=== PATIENT | female | born 1940 | race Caucasian/White ===

== ENCOUNTER 2016-09-11 12:55 | Day surgery (SDC) | payer MEDICARE, BC ==
[2016-09-11 13:31] VITALS: TEMP 97.7
[2016-09-11] MEDS ORDERED: TRIAMCINOLONE ACETONIDE 40 MG/ML SUS ONE (14:05)
[2016-09-11] MEDS ORDERED: LIDOCAINE HCL 1% MPF SOL ONE (14:18)
[2016-09-11 15:19] VITALS: PULSE 64; RESP 18; O2SAT 96
[2016-09-11 15:20] VITALS: BP 159/85
== END 2016-09-11 15:15 | disposition home or self-care (01) | DRG 552 ==
LOC: SURG 12:55
PROVIDERS: ATTEND Nurse Anesthetist, Certified Registered
DX: M48.06 Spinal stenosis, lumbar region (principal)
CPT/HCPCS: J3300

== ENCOUNTER 2016-10-21 20:15 | Emergency (ER) | payer MEDICARE, BC ==
[2016-10-22 01:46] VITALS: RESP 16; TEMP 98
[2016-10-22 02:01] VITALS: BP 125/74; PULSE 58; O2SAT 98
== END 2016-10-21 22:24 | disposition home or self-care (01) | DRG 563 ==
LOC: ED 20:15
DX: S93.411A Sprain of calcaneofibular ligament of right ankle, initial encounter (principal); X50.1XXA Overexertion from prolonged static or awkward postures, initial encounter
CPT/HCPCS: 73610; 99282; 99283; L4350

== ENCOUNTER 2017-02-12 11:55 | Day surgery (SDC) | payer MEDICARE, BC ==
[2017-02-12] MEDS ORDERED: TRIAMCINOLONE ACETONIDE 40 MG/ML SUS ONE (12:45)
[2017-02-12] MEDS ORDERED: LIDOCAINE HCL 1% MPF SOL ONE (12:46)
[2017-02-12 13:19] VITALS: TEMP 98.1
[2017-02-12 13:33] VITALS: BP 162/89; PULSE 61; RESP 20; O2SAT 94
== END 2017-02-12 13:45 | disposition home or self-care (01) | DRG 552 ==
LOC: SURG 11:55
PROVIDERS: ATTEND Nurse Anesthetist, Certified Registered
DX: M48.06 Spinal stenosis, lumbar region (principal)
CPT/HCPCS: J2001; J3300

== ENCOUNTER 2017-05-25 20:14 | Emergency (ER) | payer MEDICARE ==
[2017-05-25 20:27] LABS: BILIRUBIN,URINE NEGATIVE (NEGATIVE); COLOR,URINE Yellow; GLUCOSE, URINE (UA) NEGATIVE (NEGATIVE); KETONES,URINE NEGATIVE (NEGATIVE); LEUKOCYTE ESTERASE ,URINE 3+ (NEGATIVE); NITRATE,URINE NEGATIVE (NEGATIVE); OCCULT BLOOD,URINE 1+ (NEG-TRACE); PH,URINE 5.5; UROBILINOGEN,URINE 0.2 (0.2-1.0 EU)
[2017-05-25 20:29] VITALS: RESP 16; TEMP 97.9
[2017-05-25 20:37] LABS: APPEARANCE,URINE CLOUDY
[2017-05-25 20:38] LABS: RBC,URINE 0-3 (0-3AV/HPF); WBC,URINE 30-40 (0-5AV/HPF)
[2017-05-25] MEDS ORDERED: PHENAZOPYRIDINE HYDROCHLORID 100 MG TAB PO ONE (20:43)
[2017-05-25 20:45] VITALS: BP 116/61; PULSE 67; O2SAT 96
[2017-05-25] MEDS ORDERED: CIPROFLOXACIN HCL 500 MG TAB PO SCH (20:45)
== END 2017-05-25 21:07 | disposition home or self-care (01) | DRG 690 ==
LOC: ED 20:14
DX: N39.0 Urinary tract infection, site not specified (principal)
CPT/HCPCS: 81001; 99282

== ENCOUNTER 2017-07-24 12:55 | Day surgery (SDC) | payer MEDICARE, BC ==
[2017-07-24 13:29] VITALS: TEMP 97.3
[2017-07-24] MEDS ORDERED: BUPIVACAINE HCL 0.25% MPF 10 ML SOL INFIL ONE (14:36)
[2017-07-24] MEDS: TRIAMCINOLONE ACETONIDE 40 MG/ML SUS ONE ×2 (14:44→14:54)
[2017-07-24 15:05] VITALS: BP 165/97; PULSE 76; RESP 18; O2SAT 95
== END 2017-07-24 15:30 | disposition home or self-care (01) | DRG 552 ==
LOC: SURG 12:55
PROVIDERS: ATTEND Nurse Anesthetist, Certified Registered
DX: M48.062 Spinal stenosis, lumbar region with neurogenic claudication (principal)
CPT/HCPCS: J3300

== ENCOUNTER 2017-08-23 23:48 | Emergency (ER) | payer MEDICARE, BC ==
[2017-08-24 00:22] VITALS: TEMP 97.6; O2SAT 97
[2017-08-24 00:48] LABS: BASOPHILS % (AUTO) 2 % (0-3); EOSINOPHILS % (AUTO) 1 % (0-9); HEMATOCRIT 46 % (35-47); MEAN CORPUSCULAR HGB CONC 32.8 gm/dl (32.0-36.0); MEAN CORPUSCULAR VOLUME 94 fL (81-99); MONOCYTES % (AUTO) 3.8 % (0-12)
[2017-08-24 01:04] LABS: ALBUMIN 3.5 gm/dl (3.4-5.0); CALCIUM 8.8 mg/dl (8.5-10.1); POTASSIUM 4.2 mMol/L (3.5-5.1)
[2017-08-24 01:26] VITALS: BP 160/87; PULSE 60; RESP 15
[2017-08-24 01:29] LABS: APPEARANCE,URINE Clear; BILIRUBIN,URINE NEGATIVE (NEGATIVE); COLOR,URINE Yellow; GLUCOSE, URINE (UA) NEGATIVE (NEGATIVE); KETONES,URINE NEGATIVE (NEGATIVE); LEUKOCYTE ESTERASE ,URINE NEGATIVE (NEGATIVE); NITRATE,URINE NEGATIVE (NEGATIVE); OCCULT BLOOD,URINE NEGATIVE (NEG-TRACE); UROBILINOGEN,URINE 0.2 (0.2-1.0 EU)
[2017-08-24 01:38] LABS: AMPHETAMINES NEGATIVE (NEGATIVE); METHADONE NEGATIVE (NEGATIVE); OPIATES(OP13) NEGATIVE (NEGATIVE); OXYCODONE(OXY) NEGATIVE (NEGATIVE); PROPOXYPHENE(PPX) NEGATIVE (NEGATIVE); TRICYCLIC ANTIDEPRESSANTS NEGATIVE (NEGATIVE)
[2017-08-24 01:41] LABS: RBC,URINE NEG (0-3AV/HPF); WBC,URINE 0-2 (0-5AV/HPF)
== END 2017-08-24 03:00 | DRG 69 ==
LOC: ED 23:48
DX: G45.8 Other transient cerebral ischemic attacks and related syndromes (principal); J01.90 Acute sinusitis, unspecified; R29.701 NIHSS score 1; R40.2242 Coma scale, best verbal response, confused conversation, at arrival to emergency department; R40.2362 Coma scale, best motor response, obeys commands, at arrival to emergency department; Z86.59 Personal history of other mental and behavioral disorders
CPT/HCPCS: 70450; 80053; 80305; 81001; 84484; 85025; 85610; 87040; 93005; 99285

== ENCOUNTER 2018-04-23 12:01 | Day surgery (SDC) | payer MEDICARE, BC ==
[2018-04-23 12:26] VITALS: RESP 16
[2018-04-23] MEDS ORDERED: DEXAMETHASONE SOD PHOS PF 10 MG/ML SOL IJ ONE (12:44)
[2018-04-23] MEDS ORDERED: BUPIVACAINE HCL 0.5% MPF 10 ML SOL ONE (12:45)
[2018-04-23 13:43] VITALS: BP 173/98; PULSE 64; TEMP 98.3; O2SAT 95
== END 2018-04-23 14:00 | disposition home health service (06) | DRG 552 ==
LOC: SURG 12:01
PROVIDERS: ATTEND Nurse Anesthetist, Certified Registered
DX: M48.062 Spinal stenosis, lumbar region with neurogenic claudication (principal)
CPT/HCPCS: J1100

== ENCOUNTER 2018-06-19 11:07 | Inpatient (IN) | payer MEDICARE, BC ==
[2018-06-19] MEDS ORDERED: SENNOSIDES A AND B 8.6 MG TAB PO PRN (12:53)
[2018-06-19] MEDS ORDERED: DIAZEPAM PO PRN (12:53)
[2018-06-19] MEDS ORDERED: PATIENT EDUCATION 1 MISC PRN (13:33)
[2018-06-19] MEDS ORDERED: LOPERAMIDE HYDROCHLORIDE 2 MG CAP PO PRN (14:15)
[2018-06-19] MEDS: BRINZOLAMIDE 1% EACHEYE SCH ×2 (14:39→20:02)
[2018-06-19] MEDS: SIMVASTATIN 20 MG TAB PO SCH (20:01)
[2018-06-19] MEDS: TRAZODONE HYDROCHLORIDE 50 MG TAB PO SCH (20:01)
[2018-06-19] MEDS: FLECAINIDE 100 MG TAB PO SCH (20:01)
[2018-06-19] MEDS: MEMANTINE HYDROCHLORIDE 10 MG TAB PO SCH (20:02)
[2018-06-19] MEDS ORDERED: DIAZEPAM 2 MG PO PRN (23:09)
[2018-06-19] MEDS ORDERED: DIAZEPAM 5 MG TAB PO ONE (23:55)
[2018-06-20] MEDS: LEVOTHYROXINE SODIUM 88 MCG TAB PO SCH (07:02)
[2018-06-20] MEDS: MEMANTINE HYDROCHLORIDE 10 MG TAB PO SCH ×2 (10:24→21:33)
[2018-06-20] MEDS: SPIRONOLACTONE 25 MG TAB PO SCH (10:24)
[2018-06-20] MEDS: AMLODIPINE 5 MG TAB PO SCH (10:25)
[2018-06-20] MEDS: FLECAINIDE 100 MG TAB PO SCH ×2 (10:25→21:33)
[2018-06-20] MEDS: METOPROLOL SUCCINATE 50 MG ER TAB PO SCH (10:26)
[2018-06-20] MEDS: SERTRALINE HYDROCHLORIDE 50 MG TAB PO SCH (10:27)
[2018-06-20] MEDS: BRINZOLAMIDE 1% EACHEYE SCH ×2 (21:32→23:03)
[2018-06-20] MEDS: POLYETHYLENE GLYCOL 17 GM/1 TBS PDS PO SCH (21:33)
[2018-06-20] MEDS: TRAZODONE HYDROCHLORIDE 50 MG TAB PO SCH (21:33)
[2018-06-20] MEDS: SIMVASTATIN 20 MG TAB PO SCH (21:34)
[2018-06-21] MEDS: DIAZEPAM 5 MG TAB PO PRN (00:04)
[2018-06-21] MEDS: LEVOTHYROXINE SODIUM 88 MCG TAB PO SCH (06:26)
[2018-06-21] MEDS: MEMANTINE HYDROCHLORIDE 10 MG TAB PO SCH ×2 (09:37→20:12)
[2018-06-21] MEDS: SPIRONOLACTONE 25 MG TAB PO SCH (09:37)
[2018-06-21] MEDS: FLECAINIDE 100 MG TAB PO SCH ×2 (09:38→20:12)
[2018-06-21] MEDS: AMLODIPINE 5 MG TAB PO SCH (09:38)
[2018-06-21] MEDS: METOPROLOL SUCCINATE 50 MG ER TAB PO SCH (09:39)
[2018-06-21] MEDS: SERTRALINE HYDROCHLORIDE 50 MG TAB PO SCH (09:40)
[2018-06-21] MEDS: BRINZOLAMIDE 1% EACHEYE SCH ×3 (09:43→23:07)
[2018-06-21] MEDS: POLYETHYLENE GLYCOL 17 GM/1 TBS PDS PO SCH (09:43)
[2018-06-21] MEDS: SIMVASTATIN 20 MG TAB PO SCH (20:12)
[2018-06-21] MEDS: TRAZODONE HYDROCHLORIDE 50 MG TAB PO SCH (20:12)
[2018-06-22] MEDS: LEVOTHYROXINE SODIUM 88 MCG TAB PO SCH (07:40)
[2018-06-22] MEDS: SPIRONOLACTONE 25 MG TAB PO SCH (10:26)
[2018-06-22] MEDS: AMLODIPINE 5 MG TAB PO SCH (10:27)
[2018-06-22] MEDS: MEMANTINE HYDROCHLORIDE 10 MG TAB PO SCH ×2 (10:27→21:47)
[2018-06-22] MEDS: FLECAINIDE 100 MG TAB PO SCH ×2 (10:27→21:47)
[2018-06-22] MEDS: METOPROLOL SUCCINATE 50 MG ER TAB PO SCH (10:28)
[2018-06-22] MEDS: SERTRALINE HYDROCHLORIDE 50 MG TAB PO SCH (10:28)
[2018-06-22] MEDS: BRINZOLAMIDE 1% EACHEYE SCH ×3 (10:42→21:45)
[2018-06-22] MEDS: POLYETHYLENE GLYCOL 17 GM/1 TBS PDS PO SCH (11:07)
[2018-06-22 17:25] LABS: APPEARANCE,URINE Cloudy; BILIRUBIN,URINE NEGATIVE (NEGATIVE); COLOR,URINE Yellow; GLUCOSE, URINE (UA) NEGATIVE (NEGATIVE); KETONES,URINE NEGATIVE (NEGATIVE); LEUKOCYTE ESTERASE ,URINE 3+ (NEGATIVE); NITRATE,URINE POSITIVE (NEGATIVE); OCCULT BLOOD,URINE 1+ (NEG-TRACE); UROBILINOGEN,URINE 0.2 (0.2-1.0 EU)
[2018-06-22 17:28] LABS: BACTERIA 3+ (< 1+); CRYSTALS NEGATIVE (0-3 AVE/HPF); WBC,URINE 90-100 (0-5AV/HPF)
[2018-06-22] MEDS: CIPROFLOXACIN HCL 500 MG TAB PO SCH (18:40)
[2018-06-22] MEDS: TRAZODONE HYDROCHLORIDE 50 MG TAB PO SCH (21:46)
[2018-06-22] MEDS: SIMVASTATIN 20 MG TAB PO SCH (21:49)
[2018-06-22] MEDS: DIAZEPAM 5 MG TAB PO PRN (22:04)
[2018-06-23] MEDS: LEVOTHYROXINE SODIUM 88 MCG TAB PO SCH (06:13)
[2018-06-23] MEDS: CIPROFLOXACIN HCL 500 MG TAB PO SCH ×2 (06:16→18:13)
[2018-06-23] MEDS: ACETAMINOPHEN 325 MG PO PRN (08:33)
[2018-06-23] MEDS: POLYETHYLENE GLYCOL 17 GM/1 TBS PDS PO SCH (08:34)
[2018-06-23] MEDS: BRINZOLAMIDE 1% EACHEYE SCH ×3 (08:35→21:24)
[2018-06-23] MEDS: MEMANTINE HYDROCHLORIDE 10 MG TAB PO SCH ×2 (08:35→21:21)
[2018-06-23] MEDS: AMLODIPINE 5 MG TAB PO SCH (08:36)
[2018-06-23] MEDS: METOPROLOL SUCCINATE 50 MG ER TAB PO SCH (08:36)
[2018-06-23] MEDS: FLECAINIDE 100 MG TAB PO SCH ×2 (08:37→21:21)
[2018-06-23] MEDS: SPIRONOLACTONE 25 MG TAB PO SCH (08:37)
[2018-06-23] MEDS: SERTRALINE HYDROCHLORIDE 50 MG TAB PO SCH (08:37)
[2018-06-23] MEDS: TRAZODONE HYDROCHLORIDE 50 MG TAB PO SCH (21:21)
[2018-06-23] MEDS: SIMVASTATIN 20 MG TAB PO SCH (21:22)
[2018-06-24] MEDS: CIPROFLOXACIN HCL 500 MG TAB PO SCH ×2 (06:32→19:42)
[2018-06-24] MEDS: LEVOTHYROXINE SODIUM 88 MCG TAB PO SCH (06:32)
[2018-06-24] MEDS: POLYETHYLENE GLYCOL 17 GM/1 TBS PDS PO SCH (08:04)
[2018-06-24] MEDS: BRINZOLAMIDE 1% EACHEYE SCH ×3 (09:12→21:33)
[2018-06-24] MEDS: METOPROLOL SUCCINATE 50 MG ER TAB PO SCH (09:12)
[2018-06-24] MEDS: SPIRONOLACTONE 25 MG TAB PO SCH (09:12)
[2018-06-24] MEDS: ACETAMINOPHEN 325 MG PO PRN (09:12)
[2018-06-24] MEDS: FLECAINIDE 100 MG TAB PO SCH ×2 (09:13→21:33)
[2018-06-24] MEDS: MEMANTINE HYDROCHLORIDE 10 MG TAB PO SCH ×2 (09:13→21:33)
[2018-06-24] MEDS: AMLODIPINE 5 MG TAB PO SCH (09:13)
[2018-06-24] MEDS: SERTRALINE HYDROCHLORIDE 50 MG TAB PO SCH (09:13)
[2018-06-24] MEDS: SIMVASTATIN 20 MG TAB PO SCH (21:33)
[2018-06-24] MEDS: TRAZODONE HYDROCHLORIDE 50 MG TAB PO SCH (21:33)
[2018-06-24] MEDS: DIAZEPAM 5 MG TAB PO PRN (22:01)
[2018-06-25] MEDS: CIPROFLOXACIN HCL 500 MG TAB PO SCH (06:24)
[2018-06-25] MEDS: LEVOTHYROXINE SODIUM 88 MCG TAB PO SCH (06:25)
[2018-06-25] MEDS: BRINZOLAMIDE 1% EACHEYE SCH ×3 (09:13→20:27)
[2018-06-25] MEDS: MEMANTINE HYDROCHLORIDE 10 MG TAB PO SCH ×2 (09:14→20:28)
[2018-06-25] MEDS: FLECAINIDE 100 MG TAB PO SCH ×2 (09:14→20:29)
[2018-06-25] MEDS: SPIRONOLACTONE 25 MG TAB PO SCH (09:15)
[2018-06-25] MEDS: POLYETHYLENE GLYCOL 17 GM/1 TBS PDS PO SCH (09:15)
[2018-06-25] MEDS: AMLODIPINE 5 MG TAB PO SCH (09:15)
[2018-06-25] MEDS: SERTRALINE HYDROCHLORIDE 50 MG TAB PO SCH (09:16)
[2018-06-25] MEDS: METOPROLOL SUCCINATE 50 MG ER TAB PO SCH (09:16)
[2018-06-25] MEDS: TRAMADOL HYDROCHLORIDE 50 MG TAB PO PRN ×2 (09:59→13:29)
[2018-06-25] MEDS: LIDOCAINE 5% PATCH 1 PATCH TDM TOP PRN (10:02)
[2018-06-25] MEDS: NITROFURANTOIN 100 MG CAP PO SCH ×2 (12:13→20:28)
[2018-06-25] MEDS: ACETAMINOPHEN 325 MG PO PRN (13:28)
[2018-06-25] MEDS: TRAZODONE HYDROCHLORIDE 50 MG TAB PO SCH (20:28)
[2018-06-25] MEDS: SIMVASTATIN 20 MG TAB PO SCH (20:29)
[2018-06-26] MEDS: LEVOTHYROXINE SODIUM 88 MCG TAB PO SCH (06:49)
[2018-06-26] MEDS: FLECAINIDE 100 MG TAB PO SCH ×2 (09:39→20:12)
[2018-06-26] MEDS: BRINZOLAMIDE 1% EACHEYE SCH ×3 (09:39→20:08)
[2018-06-26] MEDS: MEMANTINE HYDROCHLORIDE 10 MG TAB PO SCH ×2 (09:39→20:10)
[2018-06-26] MEDS: POLYETHYLENE GLYCOL 17 GM/1 TBS PDS PO SCH ×2 (09:40→10:15)
[2018-06-26] MEDS: AMLODIPINE 5 MG TAB PO SCH (09:40)
[2018-06-26] MEDS: SPIRONOLACTONE 25 MG TAB PO SCH (09:40)
[2018-06-26] MEDS: METOPROLOL SUCCINATE 50 MG ER TAB PO SCH (09:41)
[2018-06-26] MEDS: NITROFURANTOIN 100 MG CAP PO SCH ×2 (09:42→20:09)
[2018-06-26] MEDS: SERTRALINE HYDROCHLORIDE 50 MG TAB PO SCH (09:42)
[2018-06-26] MEDS: TRAMADOL HYDROCHLORIDE 50 MG TAB PO PRN (12:15)
[2018-06-26] MEDS: ACETAMINOPHEN 325 MG PO PRN (12:15)
[2018-06-26] MEDS: TRAZODONE HYDROCHLORIDE 50 MG TAB PO SCH (20:09)
[2018-06-26] MEDS: SIMVASTATIN 20 MG TAB PO SCH (20:10)
[2018-06-27] MEDS: LEVOTHYROXINE SODIUM 88 MCG TAB PO SCH (06:24)
[2018-06-27] MEDS: METOPROLOL SUCCINATE 50 MG ER TAB PO SCH (10:22)
[2018-06-27] MEDS: NITROFURANTOIN 100 MG CAP PO SCH ×2 (10:22→22:33)
[2018-06-27] MEDS: SERTRALINE HYDROCHLORIDE 50 MG TAB PO SCH (10:23)
[2018-06-27] MEDS: SPIRONOLACTONE 25 MG TAB PO SCH (10:23)
[2018-06-27] MEDS: MEMANTINE HYDROCHLORIDE 10 MG TAB PO SCH ×2 (10:24→22:33)
[2018-06-27] MEDS: BRINZOLAMIDE 1% EACHEYE SCH ×3 (10:24→22:31)
[2018-06-27] MEDS: AMLODIPINE 5 MG TAB PO SCH (10:24)
[2018-06-27] MEDS: FLECAINIDE 100 MG TAB PO SCH ×2 (10:25→22:35)
[2018-06-27] MEDS: POLYETHYLENE GLYCOL 17 GM/1 TBS PDS PO SCH (10:25)
[2018-06-27] MEDS: ACETAMINOPHEN 325 MG PO PRN (13:10)
[2018-06-27] MEDS: TRAMADOL HYDROCHLORIDE 50 MG TAB PO PRN (15:30)
[2018-06-27] MEDS: LIDOCAINE 5% PATCH 1 PATCH TDM TOP PRN (17:20)
[2018-06-27] MEDS: TRAZODONE HYDROCHLORIDE 50 MG TAB PO SCH (22:32)
[2018-06-27] MEDS: SIMVASTATIN 20 MG TAB PO SCH (22:35)
[2018-06-28] MEDS: LEVOTHYROXINE SODIUM 88 MCG TAB PO SCH (06:00)
[2018-06-28] MEDS: ACETAMINOPHEN 325 MG PO PRN ×2 (06:00→17:38)
[2018-06-28] MEDS: FLECAINIDE 100 MG TAB PO SCH ×2 (08:23→20:24)
[2018-06-28] MEDS: MEMANTINE HYDROCHLORIDE 10 MG TAB PO SCH ×2 (08:23→20:23)
[2018-06-28] MEDS: NITROFURANTOIN 100 MG CAP PO SCH ×2 (08:23→20:21)
[2018-06-28] MEDS: SPIRONOLACTONE 25 MG TAB PO SCH (08:24)
[2018-06-28] MEDS: AMLODIPINE 5 MG TAB PO SCH (08:24)
[2018-06-28] MEDS: SERTRALINE HYDROCHLORIDE 50 MG TAB PO SCH (08:24)
[2018-06-28] MEDS: METOPROLOL SUCCINATE 50 MG ER TAB PO SCH (08:24)
[2018-06-28] MEDS: POLYETHYLENE GLYCOL 17 GM/1 TBS PDS PO SCH (08:25)
[2018-06-28] MEDS: BRINZOLAMIDE 1% EACHEYE SCH ×3 (08:25→20:19)
[2018-06-28] MEDS: TRAZODONE HYDROCHLORIDE 50 MG TAB PO SCH (20:22)
[2018-06-28] MEDS: TRAMADOL HYDROCHLORIDE 50 MG TAB PO PRN (20:22)
[2018-06-28] MEDS: SIMVASTATIN 20 MG TAB PO SCH (20:24)
[2018-06-29] MEDS: LEVOTHYROXINE SODIUM 88 MCG TAB PO SCH (06:23)
[2018-06-29] MEDS: TRAMADOL HYDROCHLORIDE 50 MG TAB PO PRN ×2 (06:23→13:52)
[2018-06-29] MEDS: BRINZOLAMIDE 1% EACHEYE SCH ×3 (08:37→20:01)
[2018-06-29] MEDS: SPIRONOLACTONE 25 MG TAB PO SCH (08:38)
[2018-06-29] MEDS: METOPROLOL SUCCINATE 50 MG ER TAB PO SCH (08:39)
[2018-06-29] MEDS: AMLODIPINE 5 MG TAB PO SCH (08:39)
[2018-06-29] MEDS: SERTRALINE HYDROCHLORIDE 50 MG TAB PO SCH (08:40)
[2018-06-29] MEDS: NITROFURANTOIN 100 MG CAP PO SCH ×2 (08:40→20:01)
[2018-06-29] MEDS: FLECAINIDE 100 MG TAB PO SCH ×2 (08:42→20:02)
[2018-06-29] MEDS: MEMANTINE HYDROCHLORIDE 10 MG TAB PO SCH ×2 (08:42→20:02)
[2018-06-29] MEDS: POLYETHYLENE GLYCOL 17 GM/1 TBS PDS PO SCH (08:43)
[2018-06-29] MEDS: ACETAMINOPHEN 325 MG PO PRN ×2 (08:50→17:31)
[2018-06-29] MEDS: SIMVASTATIN 20 MG TAB PO SCH (20:02)
[2018-06-29] MEDS: TRAZODONE HYDROCHLORIDE 50 MG TAB PO SCH (20:03)
[2018-06-30] MEDS: TRAMADOL HYDROCHLORIDE 50 MG TAB PO PRN ×2 (06:21→12:50)
[2018-06-30] MEDS: LEVOTHYROXINE SODIUM 88 MCG TAB PO SCH (06:21)
[2018-06-30] MEDS: SPIRONOLACTONE 25 MG TAB PO SCH (09:37)
[2018-06-30] MEDS: NITROFURANTOIN 100 MG CAP PO SCH ×2 (09:38→20:46)
[2018-06-30] MEDS: BRINZOLAMIDE 1% EACHEYE SCH ×3 (09:38→20:45)
[2018-06-30] MEDS: MEMANTINE HYDROCHLORIDE 10 MG TAB PO SCH ×2 (09:39→20:46)
[2018-06-30] MEDS: FLECAINIDE 100 MG TAB PO SCH ×2 (09:40→20:46)
[2018-06-30] MEDS: AMLODIPINE 5 MG TAB PO SCH (09:40)
[2018-06-30] MEDS: METOPROLOL SUCCINATE 50 MG ER TAB PO SCH (09:41)
[2018-06-30] MEDS: SERTRALINE HYDROCHLORIDE 50 MG TAB PO SCH (09:42)
[2018-06-30] MEDS: POLYETHYLENE GLYCOL 17 GM/1 TBS PDS PO SCH (09:48)
[2018-06-30] MEDS: TRAZODONE HYDROCHLORIDE 50 MG TAB PO SCH (20:45)
[2018-06-30] MEDS: SIMVASTATIN 20 MG TAB PO SCH (20:47)
[2018-07-01] MEDS: LEVOTHYROXINE SODIUM 88 MCG TAB PO SCH (06:35)
[2018-07-01] MEDS: SPIRONOLACTONE 25 MG TAB PO SCH (09:27)
[2018-07-01] MEDS: NITROFURANTOIN 100 MG CAP PO SCH ×2 (09:28→20:05)
[2018-07-01] MEDS: POLYETHYLENE GLYCOL 17 GM/1 TBS PDS PO SCH (09:28)
[2018-07-01] MEDS: AMLODIPINE 5 MG TAB PO SCH (09:29)
[2018-07-01] MEDS: FLECAINIDE 100 MG TAB PO SCH ×2 (09:29→20:05)
[2018-07-01] MEDS: METOPROLOL SUCCINATE 50 MG ER TAB PO SCH (09:29)
[2018-07-01] MEDS: SERTRALINE HYDROCHLORIDE 50 MG TAB PO SCH (09:30)
[2018-07-01] MEDS: BRINZOLAMIDE 1% EACHEYE SCH ×3 (09:40→20:04)
[2018-07-01] MEDS: MEMANTINE HYDROCHLORIDE 10 MG TAB PO SCH ×2 (09:41→20:04)
[2018-07-01 13:07] LABS: BASOPHILS % (AUTO) 1 % (0-3); EOSINOPHILS % (AUTO) 2 % (0-9); HEMATOCRIT 42 % (35-47); HEMOGLOBIN 13.6 gm/dl (12.0-15.5); LYMPHOCYTES % (AUTO) 6.6 % (10-50); MEAN CORPUSCULAR HEMOGLOBIN 31.3 pg (27.0-32.0); MEAN CORPUSCULAR HGB CONC 32.3 gm/dl (32.0-36.0); MEAN CORPUSCULAR VOLUME 97 fL (81-99); MONOCYTES % (AUTO) 4.9 % (0-12); NEUTROPHILS % (AUTO) 85.7 % (37-80)
[2018-07-01 13:13] LABS: CARBON DIOXIDE 26.3 mEq/L (21-32); CREATININE 1.05 mg/dl (0.60-1.00); POTASSIUM 4.1 mMol/L (3.5-5.1)
[2018-07-01 13:48] VITALS: PULSE 60; RESP 16
[2018-07-01] MEDS: LIDOCAINE 5% PATCH 1 PATCH TDM TOP PRN (15:17)
[2018-07-01] MEDS: SIMVASTATIN 20 MG TAB PO SCH (20:06)
[2018-07-01] MEDS: TRAZODONE HYDROCHLORIDE 50 MG TAB PO SCH (20:06)
[2018-07-02] MEDS: TRAMADOL HYDROCHLORIDE 50 MG TAB PO PRN ×3 (04:14→21:13)
[2018-07-02] MEDS: BRINZOLAMIDE 1% EACHEYE SCH ×3 (08:22→20:59)
[2018-07-02] MEDS: NITROFURANTOIN 100 MG CAP PO SCH ×2 (08:22→20:56)
[2018-07-02] MEDS: SPIRONOLACTONE 25 MG TAB PO SCH (08:23)
[2018-07-02] MEDS: POLYETHYLENE GLYCOL 17 GM/1 TBS PDS PO SCH (08:23)
[2018-07-02] MEDS: LEVOTHYROXINE SODIUM 88 MCG TAB PO SCH (08:23)
[2018-07-02] MEDS: MEMANTINE HYDROCHLORIDE 10 MG TAB PO SCH ×2 (08:23→20:58)
[2018-07-02] MEDS: FLECAINIDE 100 MG TAB PO SCH ×2 (08:24→20:57)
[2018-07-02] MEDS: SERTRALINE HYDROCHLORIDE 50 MG TAB PO SCH (08:24)
[2018-07-02] MEDS: AMLODIPINE 5 MG TAB PO SCH (08:24)
[2018-07-02] MEDS: METOPROLOL SUCCINATE 50 MG ER TAB PO SCH (08:24)
[2018-07-02] MEDS ORDERED: HYDROCORTISONE 2.5% PR PRN (09:30)
[2018-07-02 10:29] VITALS: BP 120/75; TEMP 98.3; O2SAT 93
[2018-07-02] MEDS: LIDOCAINE 5% PATCH 1 PATCH TDM TOP PRN (16:19)
[2018-07-02] MEDS: SIMVASTATIN 20 MG TAB PO SCH (20:56)
[2018-07-02] MEDS: TRAZODONE HYDROCHLORIDE 50 MG TAB PO SCH (20:56)
[2018-07-03] MEDS: LEVOTHYROXINE SODIUM 88 MCG TAB PO SCH (06:38)
[2018-07-03] MEDS: BRINZOLAMIDE 1% EACHEYE SCH (08:36)
[2018-07-03] MEDS: SPIRONOLACTONE 25 MG TAB PO SCH (08:36)
[2018-07-03] MEDS: MEMANTINE HYDROCHLORIDE 10 MG TAB PO SCH (08:37)
[2018-07-03] MEDS: AMLODIPINE 5 MG TAB PO SCH (08:37)
[2018-07-03] MEDS: POLYETHYLENE GLYCOL 17 GM/1 TBS PDS PO SCH (08:37)
[2018-07-03] MEDS: METOPROLOL SUCCINATE 50 MG ER TAB PO SCH (08:38)
[2018-07-03] MEDS: FLECAINIDE 100 MG TAB PO SCH (08:38)
[2018-07-03] MEDS: SERTRALINE HYDROCHLORIDE 50 MG TAB PO SCH (08:40)
[2018-07-03] MEDS: TRAMADOL HYDROCHLORIDE 50 MG TAB PO PRN (08:57)
[2018-07-03] MEDS: LIDOCAINE 5% PATCH 1 PATCH TDM TOP PRN (10:19)
== END 2018-07-03 10:25 | DRG 552 ==
LOC: ACUTE CARE 12:37
PROVIDERS: ADMIT Family Medicine; ATTEND Family Medicine
PROC: F01L5ZZ Range of Motion and Joint Integrity Assessment of Musculoskeletal System - Lower Back / Lower Extremity (ICD-10-PCS; principal; 2018-06-19)
PROC: F01L0FZ Muscle Performance Assessment of Musculoskeletal System - Lower Back / Lower Extremity using Assistive, Adaptive, Supportive or Protective Equipment (ICD-10-PCS; 2018-06-19)
PROC: F01ZBZZ Bed Mobility Assessment (ICD-10-PCS; 2018-06-19)
PROC: F02Z3FZ Grooming/Personal Hygiene Assessment using Assistive, Adaptive, Supportive or Protective Equipment (ICD-10-PCS; 2018-06-20)
DX: M48.062 Spinal stenosis, lumbar region with neurogenic claudication (principal); N30.00 Acute cystitis without hematuria; R53.1 Weakness; I10 Essential (primary) hypertension; F03.90 Unspecified dementia, unspecified severity, without behavioral disturbance, psychotic disturbance, mood disturbance, and anxiety; Z98.890 Other specified postprocedural states; M25.552 Pain in left hip; I48.91 Unspecified atrial fibrillation; E03.9 Hypothyroidism, unspecified; R33.9 Retention of urine, unspecified
CPT/HCPCS: 36415; 51798; 70450; 72040; 72170; 80048; 81001; 85025; 87077; 87088; 87186; 94150; A9270-GY

== ENCOUNTER 2018-07-16 11:30 | Emergency (ER) | payer MEDICARE, BC ==
[2018-07-16 12:00] VITALS: TEMP 98.3
[2018-07-16 12:46] LABS: BASOPHILS % (AUTO) 0 % (0-3); EOSINOPHILS % (AUTO) 1 % (0-9); HEMATOCRIT 39 % (35-47); HEMOGLOBIN 12.8 gm/dl (12.0-15.5); LYMPHOCYTES % (AUTO) 3.7 % (10-50); MEAN CORPUSCULAR HGB CONC 32.5 gm/dl (32.0-36.0); MEAN CORPUSCULAR VOLUME 95 fL (81-99); MONOCYTES % (AUTO) 4.9 % (0-12); NEUTROPHILS % (AUTO) 90.2 % (37-80)
[2018-07-16 12:55] LABS: INR 1.01 (0.86-1.12)
[2018-07-16 13:00] LABS: BILIRUBIN,TOTAL 0.4 mg/dl (0.2-1.0); CALCIUM 8.5 mg/dl (8.5-10.1); CARBON DIOXIDE 29.2 mEq/L (21-32); CREATININE 1.13 mg/dl (0.60-1.00); POTASSIUM 4.1 mMol/L (3.5-5.1); TOTAL PROTEIN 6.9 gm/dl (6.4-8.2)
[2018-07-16 13:06] LABS: APPEARANCE,URINE Clear; BILIRUBIN,URINE NEGATIVE (NEGATIVE); COLOR,URINE Dark yellow; GLUCOSE, URINE (UA) NEGATIVE (NEGATIVE); KETONES,URINE NEGATIVE (NEGATIVE); LEUKOCYTE ESTERASE ,URINE 1+ (NEGATIVE); NITRATE,URINE NEGATIVE (NEGATIVE); OCCULT BLOOD,URINE TRACE INTACT (NEG-TRACE); PH,URINE 5.5; UROBILINOGEN,URINE 0.2 (0.2-1.0 EU)
[2018-07-16 13:09] LABS: RBC,URINE 0-2 (0-3AV/HPF); WBC,URINE 15-20 (0-5AV/HPF)
[2018-07-16 13:10] LABS: BACTERIA 1+ (< 1+); CRYSTALS NEGATIVE (0-3 AVE/HPF)
[2018-07-16 17:27] VITALS: BP 120/67; PULSE 67; RESP 14; O2SAT 96
== END 2018-07-16 17:18 | DRG 690 ==
LOC: ED 11:30
DX: N39.0 Urinary tract infection, site not specified (principal); R53.1 Weakness; R23.8 Other skin changes; Z98.1 Arthrodesis status; I48.91 Unspecified atrial fibrillation
CPT/HCPCS: 36415; 51798; 70450; 71045; 72125; 80053; 81001; 85025; 85610; 87088; 93005; 99283; 99285

== ENCOUNTER 2019-02-11 13:29 | Day surgery (SDC) | payer MEDICARE, OTHER ==
[2019-02-11] MEDS ORDERED: BUPIVACAINE HCL 0.25% MPF 30 ML SOL INFIL ONE (14:31)
[2019-02-11] MEDS ORDERED: DEXAMETHASONE SOD PHOS PF 10 MG/ML SOL IJ ONE (14:31)
[2019-02-11 14:55] VITALS: RESP 18
[2019-02-11 15:12] VITALS: BP 121/79; PULSE 62; TEMP 97.4; O2SAT 95
== END 2019-02-11 15:35 | disposition home or self-care (01) | DRG 552 ==
LOC: SURG 13:29
PROVIDERS: ATTEND Nurse Anesthetist, Certified Registered
DX: M48.062 Spinal stenosis, lumbar region with neurogenic claudication (principal)
CPT/HCPCS: 77080; J1100